=== PATIENT | male | born 1990 | race Two or more races ===

== ENCOUNTER 2020-07-23 10:49 | Emergency (ER) | payer BC, SELFPAY ==
--- NOTE | ~2020-07-23 | CT_ITS ---
EXAMINATION: CHEST. CT ABDOMEN AND PELVIS WITHOUT CONTRAST. CLINICAL INFORMATION: Fever and abdominal pain COMPARISON: None TECHNIQUE: Chest one view. 5 mm thin axial and reformatted three-minute thin sagittal and coronal images of abdomen and pelvis were obtained without contrast. DLP 926 FINDINGS: Chest: The lungs are well-expanded and clear. The heart size and pulmonary vascularity is normal. No gross bony abnormality seen. ABDOMEN: The lung bases are clear. The heart size is normal. The liver is normal size, density and contour. No focal lesion or intrahepatic ductal dilatation seen. Gallbladder is unremarkable. Visualized spleen, pancreas and bilateral adrenal glands are unremarkable. Both kidneys are normal size, shape and position. No radiopaque calculi or hydronephrosis seen. Abdominal aorta is normal caliber. There are small shotty lymph nodes in the retroperitoneum. The largest aortocaval lymph node measures 8 mm axial image 37/3 There is scattered stool and gas seen throughout the colon. Nonspecific mild submucosal fat deposition and ascending colon seen. No pericolic fat stranding seen in the small bowel loops are normal caliber. Appendix is normal caliber. There are small ileocolic mesenteric lymph nodes measuring 9 mm. The abdominal wall appears unremarkable. Imaging to the pelvis reveals mild bladder wall thickening. This could be due to underdistention. No radiopaque calculi seen. There is no free fluid, inguinal hernia or abnormal lymph nodes. CT/CT abdomen pelvis wo con IMPRESSION: No acute intra-abdominal process seen. Nonspecific submucosal fat deposition in ascending colon . Unremarkable chest exam.
--- NOTE | ~2020-07-23 | CT_ITS ---
EXAMINATION: CT ANGIOGRAM OF THE CHEST WITH AND WITHOUT CONTRAST (CT PULMONARY ANGIOGRAM FOR PE) CLINICAL INFORMATION: Reason for Exam Tachycardia, elevated D-dimer COMPARISON: Chest x-ray from earlier the same day TECHNIQUE: Prior to contrast administration, noncontrast localization images were obtained. Subsequently, multidetector volumetric imaging was performed from the thoracic inlet to below the diaphragms following the administration of 65 mL Omnipaque 350 intravenous contrast. No contrast reaction reported Sagittal, coronal, and MIP oblique sagittal reformatted images were obtained on the CT workstation, uploaded to PACS, and reviewed. This CT examination was performed using dose optimization techniques as appropriate, variously including the following: *Automated exposure control *Adjustment of mA and/or kV according to patient size (this includes techniques or standardized protocols for targeted exams where dose is matched to indication/reason for exam; i.e. extremities or head) *Use of iterative reconstruction technique Total exam dose-length product 5-0 mGy-cm FINDINGS: QUALITY OF STUDY/CONTRAST BOLUS: Satisfactory. PULMONARY ARTERIES: No central or segmental pulmonary emboli. THORACIC AORTA: No aneurysm or dissection. LUNG: There is a 2 x 4 mm peripheral or subpleural right middle lobe nodule along the minor fissure axial image 166 series 8. There is a small calcified left lower lobe nodule measuring 3 mm axial image 248 and measuring 4 mm axial image 292 series 8. PLEURA: No pleural effusion or pneumothorax. MEDIASTINUM: Normal heart size. No pericardial effusion. No hilar or mediastinal lymphadenopathy. There is increased soft tissue seen in the anterior mediastinum probably representing residual thymic tissue. No evidence of septal bowing or right heart strain. CHEST WALL/AXILLA: No axillary or internal mammary lymphadenopathy. There is bilateral gynecomastia. OSSEOUS STRUCTURES: No acute or suspicious osseous abnormality. There are mild degenerative changes of the spine. UPPER ABDOMEN: Unremarkable. No reflux of contrast into the hepatic veins to suggest elevated right heart pressures. CT/CT angio chest PE protocol IMPRESSION: No evidence of pulmonary embolism. VTE: negative
[2020-07-23 10:50] VITALS: BP 158/90; PULSE 158; RESP 18; TEMP 37.1; O2SAT 99; BMI 32.6
--- NOTE | 2020-07-23 10:58 | PC.NURSE ---
pt diaphoretic, tachycardic 160s, dry pan charger colin called from triage, is aware of pt. pt denies chest pain.
[2020-07-23 11:32] VITALS: PULSE 143
--- NOTE | 2020-07-23 12:03 | PC.NURSE ---
pulse re-checked in 140s, still awaiting bedplacement, returned goods repairer aware of patient status. continues to deny chest pain
[2020-07-23 12:10] VITALS: BP 170/84; PULSE 133; RESP 16; O2SAT 97
--- NOTE | 2020-07-23 12:12 | PC.NURSE ---
st on monitor, reports anxiety and high hr at er always due to anxiety, skin wpd
--- NOTE | 2020-07-23 12:13 | ED.ABDPAIN ---
HPI - Abdominal Pain General Chief Complaint: Fever Stated Complaint: covid symptoms Time Seen by Provider: 07/23/20 12:13 Source: patient Mode of arrival: ambulatory Limitations: no limitations History of Present Illness HPI narrative: 29-year-old male with history of hypertension, gastroesophageal reflux disease, anxiety who presents ambulatory via triage with complaint of states he has had diffuse abdominal discomfort for past 2 days. MD elicited complaint: abdominal pain Onset (ago): day(s) (2) Location: diffuse Severity: mild Quality: aching Radiation: none Migration to: no migration Exacerbating factors: nothing Relieving factors: nothing Associated symptoms: nausea and diarrhea Related Data Previous Rx's Medication Instructions Recorded escitalopram oxalate 5 mg PO DAILY #14 tab 07/23/20 metoprolol tartrate 50 mg PO DAILY #30 tab 07/23/20 ondansetron HCl [Zofran] 4 mg PO Q8H PRN #10 tab 07/23/20 Allergies Allergy/AdvReac Type Severity Reaction Status Date / Time No Known Allergies Allergy Verified 07/23/20 12:13 Review of Systems Review of Systems Constitutional: No Weight loss, No Fever, No Chills, No Night Sweats, No Fatigue, No Malaise ENT/Mouth: No Hearing loss, No Ear Pain, No Nasal Congestion, No Sinus Pain, No Hoarseness, No sore throat, No Rhinorrhea, No Swallowing Difficulty Eyes: No Eye Pain, No Swelling, No Redness, No Foreign Body, No Discharge, No Vision Changes Cardiovascular: No Chest Pain, No SOB, No Dyspnea on Exertion, No Orthopnea, No Edema, No Palpitations Respiratory: No Cough, No Sputum, No Wheezing, No Dyspnea Gastrointestinal: No Nausea, No Vomiting, No Diarrhea, No Constipation, No abdominal Pain, No Hematochezia, No Melena Genitourinary: No Dysuria, No Urinary Frequency, No Hematuria, No Urinary Incontinence, No Urgency, No Flank Pain, No Urinary Flow Changes, No Hesitancy Musculoskeletal: No joint pain, No Myalgias, No Joint Swelling Skin: No Skin Lesions, No rash Neuro: No Weakness, No Numbness, No Paresthesias, No Loss of Consciousness, No Dizziness, No Headache Psych: + Anxiety/Panic states he has a bad case of white coat syndrome and is very anxious when he goes to doctors, No Depression, No SI/HI/AH/VH, No Social Issues Heme/Lymph: No Bruising, No Bleeding,No Lymphadenopathy Endocrine: No Polyuria, No Polydipsia, No Temperature Intolerance Yes all other systems are reviewed and are negative Physical Exam Vital Signs: Vital Signs: Last Vital Signs Temp 98.8 F 07/23/20 10:50 Pulse 133 H 07/23/20 14:10 Resp 14 07/23/20 14:10 BP 159/99 H 07/23/20 14:10 Pulse Ox 97 07/23/20 14:10 Body Mass Index 32.6 Reviewed Const: General: cooperative and healthy appearing; No acute distress or intoxicated appearing Nutritional Appearance: average body habitus Orientation/consciousness: patient oriented x3 HENMT: Head: Yes normal to inspection Ears: hearing grossly normal bilaterally Eyes: General: appearance normal, both eyes and all related structures Visual Cooper: normal visual cooper by confrontation Neck: Neck: Yes normal visual inspection, No positive Brudzinski's sign, No positive Kernig's sign and No tender Thyroid: Thyroid normal Chest: Chest palpation & inspection: normal inspection of the chest Resp: Effort & Inspection: normal respiratory effort Auscultation: clear to auscultation bilaterally Cardio: Jugular venous distension: no JVD Rate: tachycardic GI: Inspection: Yes normal to inspection Palpation (GI): Soft to palpation, nontender, no guarding, not rigid and hepatosplenomegaly present Percussion: Yes normal to percussion Auscultation: normal bowel sounds : General: Yes no CVA tenderness Back/Spine/Pelvis: Back: no CVA tenderness Skin: General skin exam: no rashes or lesions noted Neuro: General: patient oriented x3 Extrem: General: Yes normal to inspection Course Course Course Narrative: After workup he reveals that his daughter also has similar symptoms and she was tested for COVID which was -2 days onset to prior to his symptoms she is doing well now. He is notably tachycardic but reports history of severe anxiety and healthcare settings and he is on citalopram and was supposed to be on metoprolol but he ran out of these and is requesting a refill. His workup is otherwise overall reassuring. Will discharge home with couple caution return follow-up instructions. Stable for discharge. Reevaluation(s) Reevaluation #1: Notably tachycardic upon arrival nonspecific abdominal pain with benign abdominal exam with some gastroenteritis type symptoms going on for past 2 days workup including COVID stratification labs, IV fluids, antiemetics and anxiolytics and re-evaluate. Reevaluation #2: Lab work shows leukocytosis 12.9 even after 1 mg of lorazepam still tachycardic in the 120s given his symptoms and consistency D-dimer is ordered and is bumped at 800 the CTA chest ordered. Reevaluation #3: CT negative for acute pulmonary embolism reassure me that this is his baseline for him he is requesting refill for his medications he is on metoprolol and citalopram will given this will discharged with good precautions return follow-up instructions. MDM - Abdominal Pain Medical Records Attestation: I reviewed the patient's medical records. Lab Data Attestation: I reviewed the patient's lab results. Result diagrams: 07/23/20 12:35 07/23/20 12:36 Labs: Lab Results 07/23/20 07/23/20 07/23/20 Range/Units 12:35 12:35 12:35 WBC 12.9 H (4.8-10.8) X10*3/uL RBC 5.64 (4.60-5.80) X10*6/uL Hgb 17.1 (14.0-18.0) g/dl Hct 49.5 (42-52) % MCV 87.8 (80-98) fL MCH 30.3 (27.0-33.0) pg MCHC 34.5 (31.0-36.0) g/dl RDW 12.2 (11.0-16.0) % Plt Count 329 (160-400) X10*3/uL MPV 9.2 L (9.4-12.4) fL Immature Gran % (Auto) 0.3 (0.0-0.4) % Neut % (Auto) 86.7 H (45-73) % Lymph % (Auto) 7.2 L (20-40) % Fajardo % (Auto) 5.6 (2-11) % Eos % (Auto) 0.0 (0-4) % Baso % (Auto) 0.2 (0-2) % Lymph # (Auto) 0.9 L (1.2-4.9) X10*3/uL Fajardo # (Auto) 0.7 (0.1-1.2) X10*3/uL Eos # (Auto) 0.0 (0.0-0.4) X10*3/uL Baso # (Auto) 0.0 (0.0-0.2) X10*3/uL Abs Immat Gran (auto) 0.04 H (0.00-0.03) X10*3/uL Absolute Neuts (auto) 11.2 H (2.0-8.3) X10*3/uL Absolute Nucleated RBC 0.000 (0.0-0.012) X10*3/uL Nucleated RBC % (auto) 0.0 (0.0-0.2) /100WBC PT 16.8 H (10.8-13.0) SEC INR 1.4 H (0.9-1.1) APTT 37.9 (24.1-38.0) SEC D-Dimer 838 NG/ML Sodium (135-145) mmol/L Potassium (3.3-5.1) mmol/L Chloride (96-108) mmol/L Carbon Dioxide (22-29) mmol/L Anion Gap (12-20) BUN (9-16) mg/dL Creatinine (0.5-1.4) mg/dL Estim Creat Clear Calc Estimated GFR Random Glucose (60-115) mg/dL Lactic Acid (0.5-2.0) mmol/L Calcium (8.4-10.2) mg/dL Ferritin (20-250) ng/mL Total Bilirubin (0.0-1.0) mg/dL AST (5-37) U/L ALT (0-40) U/L Alkaline Phosphatase (39-117) U/L Lactate Dehydrogenase (118-273) U/L C-Reactive Protein (< or = 0.50) mg/dL Total Protein (6.5-8.0) g/dL Albumin (3.5-5.0) g/dL Procalcitonin ng/mL Urine Color Urine Appearance Urine pH (5.0-8.0) Ur Specific Hooks (1.005-1.025) Urine Protein (NEG-TRACE) MG/DL Urine Glucose (UA) (NEG) MG/DL Urine Ketones (NEG) MG/DL Urine Blood (NEG) Urine Nitrite (NEG) Ur Leukocyte Esterase (NEG) Urine RBC (0) /HPF Urine WBC (0-4) /HPF Ur Squamous Epith Cells /LPF Urine Bacteria /LPF Urine Opiates Screen (Not Detect) Ur Barbiturates Screen (Not Detect) Ur Phencyclidine Scrn (Not Detect) Ur Amphetamines Screen (Not Detect) U Benzodiazepines Scrn (Not Detect) Urine Cocaine Screen (Not Detect) U Marijuana (THC) Screen (Not Detect) Coronavirus (PCR) NEGATIVE (Negative) Influenza Type A (PCR) NEGATIVE (Negative) Influenza Type B (PCR) NEGATIVE (Negative) RSV RNA Qual (PCR) NEGATIVE (Negative) 07/23/20 07/23/20 07/23/20 Range/Units 12:35 12:36 12:36 WBC (4.8-10.8) X10*3/uL RBC (4.60-5.80) X10*6/uL Hgb (14.0-18.0) g/dl Hct (42-52) % MCV (80-98) fL MCH (27.0-33.0) pg MCHC (31.0-36.0) g/dl RDW (11.0-16.0) % Plt Count (160-400) X10*3/uL MPV (9.4-12.4) fL Immature Gran % (Auto) (0.0-0.4) % Neut % (Auto) (45-73) % Lymph % (Auto) (20-40) % Fajardo % (Auto) (2-11) % Eos % (Auto) (0-4) % Baso % (Auto) (0-2) % Lymph # (Auto) (1.2-4.9) X10*3/uL Fajardo # (Auto) (0.1-1.2) X10*3/uL Eos # (Auto) (0.0-0.4) X10*3/uL Baso # (Auto) (0.0-0.2) X10*3/uL Abs Immat Gran (auto) (0.00-0.03) X10*3/uL Absolute Neuts (auto) (2.0-8.3) X10*3/uL Absolute Nucleated RBC (0.0-0.012) X10*3/uL Nucleated RBC % (auto) (0.0-0.2) /100WBC PT (10.8-13.0) SEC INR (0.9-1.1) APTT (24.1-38.0) SEC D-Dimer NG/ML Sodium 138 (135-145) mmol/L Potassium 3.5 (3.3-5.1) mmol/L Chloride 101 (96-108) mmol/L Carbon Dioxide 26 (22-29) mmol/L Anion Gap 15 (12-20) BUN 8 L (9-16) mg/dL Creatinine 0.96 (0.5-1.4) mg/dL Estim Creat Clear Calc 126.2 Estimated GFR > 60 Random Glucose 131 H (60-115) mg/dL Lactic Acid 1.7 (0.5-2.0) mmol/L Calcium 9.4 (8.4-10.2) mg/dL Ferritin 476 H (20-250) ng/mL Total Bilirubin 1.2 H (0.0-1.0) mg/dL AST 19 (5-37) U/L ALT 28 (0-40) U/L Alkaline Phosphatase 77 (39-117) U/L Lactate Dehydrogenase 235 (118-273) U/L C-Reactive Protein 13.87 H (< or = 0.50) mg/dL Total Protein 7.9 (6.5-8.0) g/dL Albumin 4.9 (3.5-5.0) g/dL Procalcitonin 0.11 ng/mL Urine Color Urine Appearance Urine pH (5.0-8.0) Ur Specific Hooks (1.005-1.025) Urine Protein (NEG-TRACE) MG/DL Urine Glucose (UA) (NEG) MG/DL Urine Ketones (NEG) MG/DL Urine Blood (NEG) Urine Nitrite (NEG) Ur Leukocyte Esterase (NEG) Urine RBC (0) /HPF Urine WBC (0-4) /HPF Ur Squamous Epith Cells /LPF Urine Bacteria /LPF Urine Opiates Screen (Not Detect) Ur Barbiturates Screen (Not Detect) Ur Phencyclidine Scrn (Not Detect) Ur Amphetamines Screen (Not Detect) U Benzodiazepines Scrn (Not Detect) Urine Cocaine Screen (Not Detect) U Marijuana (THC) Screen (Not Detect) Coronavirus (PCR) (Negative) Influenza Type A (PCR) (Negative) Influenza Type B (PCR) (Negative) RSV RNA Qual (PCR) (Negative) 07/23/20 07/23/20 Range/Units 13:34 13:34 WBC (4.8-10.8) X10*3/uL RBC (4.60-5.80) X10*6/uL Hgb (14.0-18.0) g/dl Hct (42-52) % MCV (80-98) fL MCH (27.0-33.0) pg MCHC (31.0-36.0) g/dl RDW (11.0-16.0) % Plt Count (160-400) X10*3/uL MPV (9.4-12.4) fL Immature Gran % (Auto) (0.0-0.4) % Neut % (Auto) (45-73) % Lymph % (Auto) (20-40) % Fajardo % (Auto) (2-11) % Eos % (Auto) (0-4) % Baso % (Auto) (0-2) % Lymph # (Auto) (1.2-4.9) X10*3/uL Fajardo # (Auto) (0.1-1.2) X10*3/uL Eos # (Auto) (0.0-0.4) X10*3/uL Baso # (Auto) (0.0-0.2) X10*3/uL Abs Immat Gran (auto) (0.00-0.03) X10*3/uL Absolute Neuts (auto) (2.0-8.3) X10*3/uL Absolute Nucleated RBC (0.0-0.012) X10*3/uL Nucleated RBC % (auto) (0.0-0.2) /100WBC PT (10.8-13.0) SEC INR (0.9-1.1) APTT (24.1-38.0) SEC D-Dimer NG/ML Sodium (135-145) mmol/L Potassium (3.3-5.1) mmol/L Chloride (96-108) mmol/L Carbon Dioxide (22-29) mmol/L Anion Gap (12-20) BUN (9-16) mg/dL Creatinine (0.5-1.4) mg/dL Estim Creat Clear Calc Estimated GFR Random Glucose (60-115) mg/dL Lactic Acid (0.5-2.0) mmol/L Calcium (8.4-10.2) mg/dL Ferritin (20-250) ng/mL Total Bilirubin (0.0-1.0) mg/dL AST (5-37) U/L ALT (0-40) U/L Alkaline Phosphatase (39-117) U/L Lactate Dehydrogenase (118-273) U/L C-Reactive Protein (< or = 0.50) mg/dL Total Protein (6.5-8.0) g/dL Albumin (3.5-5.0) g/dL Procalcitonin ng/mL Urine Color DARK YELLOW Urine Appearance HAZY Urine pH 7.0 (5.0-8.0) Ur Specific Hooks 1.015 (1.005-1.025) Urine Protein 1+ H (NEG-TRACE) MG/DL Urine Glucose (UA) NEG (NEG) MG/DL Urine Ketones 40 (NEG) MG/DL Urine Blood TRACE (NEG) Urine Nitrite NEG (NEG) Ur Leukocyte Esterase NEG (NEG) Urine RBC 1-4 (0) /HPF Urine WBC 0-2 (0-4) /HPF Ur Squamous Epith Cells NONE /LPF Urine Bacteria NONE /LPF Urine Opiates Screen Not Detected (Not Detect) Ur Barbiturates Screen Not Detected (Not Detect) Ur Phencyclidine Scrn Not Detected (Not Detect) Ur Amphetamines Screen Not Detected (Not Detect) U Benzodiazepines Scrn Not Detected (Not Detect) Urine Cocaine Screen Not Detected (Not Detect) U Marijuana (THC) Screen Not Detected (Not Detect) Coronavirus (PCR) (Negative) Influenza Type A (PCR) (Negative) Influenza Type B (PCR) (Negative) RSV RNA Qual (PCR) (Negative) Imaging Data Chest CTA: Radiologist's impression: [address] [id number] Scan ReportSigned Patient: Fredo Douglas [facility]#: [id number]: 1990Acct:[id number]/Sex: 29 / MADM Date: 07/23/20Loc: EDAttaleksandra Dr: Ordering Physician: Vinson,Bill PROVIDER RELATIONS COORDINATOR Date of Service: 07/23/20 Procedure(s): CT angio chest PE protocol Accession Number(s): [id number] cc: Bill Vinson PROVIDER RELATIONS COORDINATOR~ EXAMINATION: CT ANGIOGRAM OF THE CHEST WITH AND WITHOUT CONTRAST (CT PULMONARY ANGIOGRAM FOR PE) CLINICAL INFORMATION: Reason for Exam Tachycardia, elevated D-dimer COMPARISON: Chest x-ray from earlier the same day TECHNIQUE: Prior to contrast administration, noncontrast localization images were obtained. Subsequently, multidetector volumetric imaging was performed from the thoracic inlet to below the diaphragms following the administration of 65 mL Omnipaque 350 intravenous contrast. No contrast reaction reported Sagittal, coronal, and MIP oblique sagittal reformatted images were obtained on the CT workstation, uploaded to PACS, and reviewed. This CT examination was performed using dose optimization techniques as appropriate, variously including the following: *Automated exposure control *Adjustment of mA and/or kV according to patient size (this includes techniques or standardized protocols for targeted exams where dose is matched to indication/reason for exam; i.e. extremities or head) *Use of iterative reconstruction technique Total exam dose-length product 5-0 mGy-cm FINDINGS: QUALITY OF STUDY/CONTRAST BOLUS: Satisfactory. PULMONARY ARTERIES: No central or segmental pulmonary emboli. THORACIC AORTA: No aneurysm or dissection. LUNG: There is a 2 x 4 mm peripheral or subpleural right middle lobe nodule along the minor fissure axial image 166 series 8. There is a small calcified left lower lobe nodule measuring 3 mm axial image 248 and measuring 4 mm axial image 292 series 8. PLEURA: No pleural effusion or pneumothorax. MEDIASTINUM: Normal heart size. No pericardial effusion. No hilar or mediastinal lymphadenopathy. There is increased soft tissue seen in the anterior mediastinum probably representing residual thymic tissue. No evidence of septal bowing or right heart strain. CHEST WALL/AXILLA: No axillary or internal mammary lymphadenopathy. There is bilateral gynecomastia. OSSEOUS STRUCTURES: No acute or suspicious osseous abnormality. There are mild degenerative changes of the spine. UPPER ABDOMEN: Unremarkable. No reflux of contrast into the hepatic veins to suggest elevated right heart pressures. CT/CT angio chest PE protocol IMPRESSION: No evidence of pulmonary embolism. VTE: negative Dictated By:DHAVAL KINSEY MDSigned By:<Electronically signed by DHAVAL KINSEY MD in OV>07/23/20 1549 DD/ 1510TD/TT: Sampling Expert: SANDRITA Chest x-ray: Radiologist's impression: [address] [id number] ReportSigned Patient: Fredo Douglas [facility]#: [id number]: 1990Acct:[id number]/Sex: 29 / MADM Date: 07/23/20Loc: [place].EDAttending Dr: Ordering Physician: Bill Vinson NP Date of Service: 07/23/20 Procedure(s): XR chest 1V Accession Number(s): [id number] cc: Bill Vinson PROVIDER RELATIONS COORDINATOR~ EXAMINATION: CHEST. CT ABDOMEN AND PELVIS WITHOUT CONTRAST. CLINICAL INFORMATION: Fever and abdominal pain COMPARISON: None TECHNIQUE: Chest one view. 5 mm thin axial and reformatted three-minute thin sagittal and coronal images of abdomen and pelvis were obtained without contrast. DLP 926 FINDINGS: Chest: The lungs are well-expanded and clear. The heart size and pulmonary vascularity is normal. No gross bony abnormality seen. ABDOMEN: The lung bases are clear. The heart size is normal. The liver is normal size, density and contour. No focal lesion or intrahepatic ductal dilatation seen. Gallbladder is unremarkable. Visualized spleen, pancreas and bilateral adrenal glands are unremarkable. Both kidneys are normal size, shape and position. No radiopaque calculi or hydronephrosis seen. Abdominal aorta is normal caliber. There are small shotty lymph nodes in the retroperitoneum. The largest aortocaval lymph node measures 8 mm axial image 37/3 There is scattered stool and gas seen throughout the colon. Nonspecific mild submucosal fat deposition and ascending colon seen. No pericolic fat stranding seen in the small bowel loops are normal caliber. Appendix is normal caliber. There are small ileocolic mesenteric lymph nodes measuring 9 mm. The abdominal wall appears unremarkable. Imaging to the pelvis reveals mild bladder wall thickening. This could be due to underdistention. No radiopaque calculi seen. There is no free fluid, inguinal hernia or abnormal lymph nodes. XR/XR chest 1V IMPRESSION: No acute intra-abdominal process seen. Nonspecific submucosal fat deposition in ascending colon . Unremarkable chest exam. Dictated By:CLARE GOLDSMITH MDSigned By:<Electronically signed by CLARE GOLDSMITH MD in OV>07/23/20 1327 DD/ 1214TD/TT: Sampling Expert: YAMILEX Abdominal pelvis CT: Radiologist's impression: [address] [id number] Scan ReportSigned Patient: Fredo Douglas [facility]#: [id number]: 1990Acct:[id number]/Sex: 29 / MADM Date: 07/23/20Loc: HO.EDAttending Dr: Ordering Physician: Bill Vinson NP Date of Service: 07/23/20 Procedure(s): CT abdomen pelvis wo con Accession Number(s): [id number] cc: Bill Vinson PROVIDER RELATIONS COORDINATOR~ EXAMINATION: CHEST. CT ABDOMEN AND PELVIS WITHOUT CONTRAST. CLINICAL INFORMATION: Fever and abdominal pain COMPARISON: None TECHNIQUE: Chest one view. 5 mm thin axial and reformatted three-minute thin sagittal and coronal images of abdomen and pelvis were obtained without contrast. DLP 926 FINDINGS: Chest: The lungs are well-expanded and clear. The heart size and pulmonary vascularity is normal. No gross bony abnormality seen. ABDOMEN: The lung bases are clear. The heart size is normal. The liver is normal size, density and contour. No focal lesion or intrahepatic ductal dilatation seen. Gallbladder is unremarkable. Visualized spleen, pancreas and bilateral adrenal glands are unremarkable. Both kidneys are normal size, shape and position. No radiopaque calculi or hydronephrosis seen. Abdominal aorta is normal caliber. There are small shotty lymph nodes in the retroperitoneum. The largest aortocaval lymph node measures 8 mm axial image 37/3 There is scattered stool and gas seen throughout the colon. Nonspecific mild submucosal fat deposition and ascending colon seen. No pericolic fat stranding seen in the small bowel loops are normal caliber. Appendix is normal caliber. There are small ileocolic mesenteric lymph nodes measuring 9 mm. The abdominal wall appears unremarkable. Imaging to the pelvis reveals mild bladder wall thickening. This could be due to underdistention. No radiopaque calculi seen. There is no free fluid, inguinal hernia or abnormal lymph nodes. CT/CT abdomen pelvis wo con IMPRESSION: No acute intra-abdominal process seen. Nonspecific submucosal fat deposition in ascending colon . Unremarkable chest exam. Dictated By:CLARE GOLDSMITH MDSigned By:<Electronically signed by CLARE GOLDSMITH MD in OV>07/23/20 1327 DD/ 1214TD/TT: Sampling Expert: YAMILEX ECG Data Interpretation: Sinus tachy [address] segment changes VA interval 132 QT/QTC 294/437 No previous available Discharge Plan Discharge Clinical Impression: Viral gastroenteritis, Anxiety, HTN (hypertension), Medication refill Patient Disposition: Home, Self-Care Instructions: Generalized Anxiety Disorder (ED), Viral Syndrome (ED), Hypertension (ED), Anxiety (ED) Additional Instructions: Drink plenty of fluids Supportive care discussed Follow-up with primary care doctor as discussed closely Return if any concerns or worsening symptoms Thank you Prescriptions: New ondansetron HCl [Zofran] 4 mg tablet 4 mg PO Q8H PRN (Reason: nausea and vomiting) Qty: 10 RF: 0 escitalopram oxalate 5 mg tablet 5 mg PO DAILY Qty: 14 RF: 1 metoprolol tartrate 50 mg tablet 50 mg PO DAILY Qty: 30 RF: 0 Referrals: [facility] [Primary Care Provider] - 2 weeks Stand Alone Forms: Work/School Release [facility] Past Medical History Medical History (Updated 07/23/20 @ 16:53 by Bill Vinson NP) Anxiety Gastroesophageal reflux disease HTN (hypertension) Social History Social History Advance Directives: No Advance Directives Information Provided: No
--- NOTE | 2020-07-23 12:14 | ECG_ITS ---
Test Reason : PALPITATIONS Blood Pressure : / mmHG Vent. Rate : 133 BPM Atrial Rate : 133 BPM P-R Int : 132 ms QRS Dur : 080 ms QT Int : 294 ms P-R-T Axes : 036 007 020 degrees QTc Int : 437 ms Sinus tachycardia Nonspecific T wave abnormality Abnormal ECG No previous ECGs available Referred By: Bill Vinson Electronically Signed By:MERRICK LEA MD
[2020-07-23 12:42] LABS: MANUAL DIFF FLAG NO
[2020-07-23] MEDS: LORazepam 2 MG/ML VIAL 1 MG IVPUSH (12:42)
[2020-07-23] MEDS: 0.9 % Sodium Chloride 1,000 ML 999 ML IV ×2 (12:43→14:33)
[2020-07-23 12:45] LABS: Basophils Percent Auto 0.2 % (0-2); Hematocrit 49.5 % (42-52); Hemoglobin 17.1 g/dl (14.0-18.0); Imm Gran Abs Auto 0.04 X10*3/uL (0.00-0.03); Imm Gran Pct Auto 0.3 % (0.0-0.4); Lymphocytes Absolute Auto 0.9 X10*3/uL (1.2-4.9); Lymphocytes Percent Auto 7.2 % (20-40); Mean Corpuscular HGB Conc 34.5 g/dl (31.0-36.0); Mean Corpuscular Hemoglobin 30.3 pg (27.0-33.0); Mean Corpuscular Volume 87.8 fL (80-98); Mean Platelet Volume 9.2 fL (9.4-12.4); Monocytes Absolute Auto 0.7 X10*3/uL (0.1-1.2); Monocytes Percent Auto 5.6 % (2-11); Neutrophils Absolute Auto 11.2 X10*3/uL (2.0-8.3); Neutrophils Percent Auto 86.7 % (45-73); Platelet Count 329 X10*3/uL (160-400); Red Blood Count 5.64 X10*6/uL (4.60-5.80); Red Cell Distribution Width 12.2 % (11.0-16.0); White Blood Count 12.9 X10*3/uL (4.8-10.8)
[2020-07-23 12:51] LABS: INTERNATIONAL NORM RATIO 1.4 (0.9-1.1); Prothrombin Time 16.8 SEC (10.8-13.0)
[2020-07-23 12:54] LABS: Partial Thromboplastin Time 37.9 SEC (24.1-38.0)
[2020-07-23 13:09] LABS: Lactic Acid 1.7 mmol/L (0.5-2.0)
[2020-07-23 13:26] LABS: Alanine Aminotransferase 28 U/L (0-40); Albumin Level 4.9 g/dL (3.5-5.0); Alkaline Phosphatase 77 U/L (39-117); Anion Gap 15 (12-20); Aspartate Amino Transferase 19 U/L (5-37); Bilirubin Total 1.2 mg/dL (0.0-1.0); Blood Urea Nitrogen 8 mg/dL (9-16); C Reactive Protein 13.87 mg/dL (< or = 0.50); Calcium 9.4 mg/dL (8.4-10.2); Carbon Dioxide 26 mmol/L (22-29); Chloride 101 mmol/L (96-108); Creatinine Clr Calc Pharmacy 126.2; Estimated Glomerular Filt Rate > 60; Glucose Random 131 mg/dL (60-115); Lactate Dehydrogenase 235 U/L (118-273); Potassium 3.5 mmol/L (3.3-5.1); Sodium 138 mmol/L (135-145); Total Protein 7.9 g/dL (6.5-8.0)
[2020-07-23 13:35] VITALS: BP 152/74; PULSE 121; RESP 15; O2SAT 98
[2020-07-23 13:45] LABS: Glucose Urine UA NEG (NEG); Leukocyte Esterase Urine NEG (NEG); Nitrite Urine NEG (NEG); Specific Gravity - Urine 1.015 (1.005-1.025); Urine Blood TRACE (NEG); Urine Ketones 40 MG/DL (NEG); Urine Protein 1+ MG/DL (NEG-TRACE)
[2020-07-23 13:46] LABS: Ferritin 476 ng/mL (20-250)
[2020-07-23 13:49] LABS: Appearance Urine HAZY; Color Urine DARK YELLOW
[2020-07-23 13:53] LABS: WBC Urine 0-2 /HPF (0-4)
[2020-07-23 14:09] LABS: Amphetamine Screen Urine Not Detected (Not Detect); Barbiturates, Urine Not Detected (Not Detect); Benzodiazepines Screen Urine Not Detected (Not Detect); Cannabinoid Screen Urine Not Detected (Not Detect); Cocaine Screen Urine Not Detected (Not Detect); Opiate Screen Urine Not Detected (Not Detect); Phencyclidine Screen Urine Not Detected (Not Detect)
[2020-07-23 14:10] VITALS: BP 159/99; PULSE 133; RESP 14; O2SAT 97
[2020-07-23 14:23] LABS: Procalcitonin 0.11 ng/mL
[2020-07-23 14:56] LABS: D Dimer 838 NG/ML
[2020-07-23 15:12] LABS: Influenza A PCR NEGATIVE (Negative); Influenza B PCR NEGATIVE (Negative); Resp Syncy Virus RNA Qual PCR NEGATIVE (Negative); SARS COV2 PCR INHOUSE NEGATIVE (Negative)
== END 2020-07-23 17:03 | disposition home or self-care (01) ==
PROVIDERS: Nurse Practitioner Primary Care; Emergency Provider Emergency Medicine
DX: A08.4 Viral intestinal infection, unspecified (principal); I10 Essential (primary) hypertension; F41.9 Anxiety disorder, unspecified; R00.0 Tachycardia, unspecified; Z20.822 Contact with and (suspected) exposure to COVID-19; Z76.0 Encounter for issue of repeat prescription; K21.9 Gastro-esophageal reflux disease without esophagitis
CPT/HCPCS: 0241U; 36415; 71045; 71275; 74176; 80053; 80307; 81001; 82728; 83605; 83615; 84145; 85025; 85379; 85610; 85730; 86140; 87040; 93005; 96361; 96374; 99283; 99284; J2060; Q9967

== ENCOUNTER 2021-08-06 07:39 | Outpatient (REF) | payer SELFPAY ==
[2021-08-06 09:49] LABS: Alanine Aminotransferase 49 U/L (0-40); Albumin Level 4.8 g/dL (3.5-5.0); Alkaline Phosphatase 65 U/L (39-117); Anion Gap 17 (12-20); Aspartate Amino Transferase 25 U/L (5-37); Bilirubin Total 0.8 mg/dL (0.0-1.0); Blood Urea Nitrogen 20 mg/dL (9-16); Calcium 10.3 mg/dL (8.4-10.2); Carbon Dioxide 25 mmol/L (22-29); Chloride 103 mmol/L (96-108); Estimated Glomerular Filt Rate > 60; Glucose Random 107 mg/dL (60-115); Potassium 4.7 mmol/L (3.3-5.1); Sodium 140 mmol/L (135-145); Total Protein 7.6 g/dL (6.5-8.0)
== END 2021-08-06 07:40 | disposition home or self-care (01) ==
LOC: HO.LAB 07:39
PROVIDERS: PCP Internal Medicine; Visit Provider Internal Medicine
DX: F41.9 Anxiety disorder, unspecified (principal)
CPT/HCPCS: 36415; 80053; 84443